=== PATIENT | female | born 1995 | race Two or more races ===

== ENCOUNTER 2024-08-15 21:49 | Emergency (ER) | payer OTHER ==
[~2024-08-15] VITALS: Ht 165.1 cm; Wt 104.3 kg
[2024-08-16 00:18] LABS: PH,URINE 5.5 (5.0-8.0); URINE APPEARANCE Cloudy; URINE BILIRRUBIN Negative (NEGATIVE); URINE BLOOD Moderate; URINE COLOR Yellow; URINE GLUCOSE Negative (NEGATIVE); URINE KETONE Negative (NEGATIVE); URINE LEUKOCYTE Negative; URINE NITRATE Negative; URINE PROTEIN Negative (NEGATIVE); URINE UROBILINOGEN 0.2 E.U./dl
[2024-08-16 00:19] LABS: HEMATOCRIT 36.8 % (36.0-45.00); HEMOGLOBIN 12.3 g/dL (12.0-15.00); MEAN CELL VOLUME 81.3 fL (80.00-100.00); MEAN CORPUSCULAR HEMOGLOBIN 27.3 pg (27.00-32.0); MEAN CORPUSCULAR HGB CONC 33.6 g/dl (32.0-36.0); PLATELET COUNT 290 K/uL (150-450); RED BLOOD COUNT 4.52 M/uL (4.00-6.00); RED CELL DISTRIBUTION WIDTH 14.6 % (11.5-14.5)
[2024-08-16 00:22] LABS: URINE BACTERIA 205.6 uL (0.0-1933); URINE EPITHELIAL CELLS 11.9 uL (0.0-38.8); URINE RBC 2.7 uL (0.0-20.8); URINE WBC 2.6 uL (0.0-23.2)
[2024-08-16 00:36] LABS: INR 0.98; PARTIAL THROMBOPLASTIN TIME 27.6 SECONDS (22.0-34.0); PROTHROMBIN TIME 10.7 SECONDS (9.0-11.5)
[2024-08-16 00:40] LABS: ALBUMIN 3.5 gm/dL (3.4-5.0); BILIRUBIN TOTAL 0.18 mg/dL (0.3-1.2); CALCIUM 9.1 mg/dL (8.5-10.1); CREATININE SERUM 0.52 mg/dL (0.55-1.02); GFR 141.45; GLOBULINA 4.5 G/DL (2.4-3.5); POTASSIUM 3.66 mEq/L (3.5-5.1)
== END 2024-08-16 03:15 ==
LOC: ER 21:52
PROVIDERS: General Practice
DX: O03.9 Complete or unspecified spontaneous abortion without complication (principal)